=== PATIENT | male | born 1955 | race Hispanic/Latino ===

== ENCOUNTER 2019-08-27 20:24 | Emergency (ER) | payer OTHER ==
[~2019-08-27] VITALS: Ht 177.8 cm; Wt 113.4 kg
--- OUTSIDE RECORDS SUMMARY | 2019-08-27 20:26 | XMS REPORT ---
Author Author [facility] Address Unknown Phone Unavailable Care Team Providers Care Bingo Usher Name Role Phone Unavailable Unavailable Problems This patient has no known problems. Allergies, Adverse Reactions, Alerts This patient has no known allergies or adverse reactions. Medications This patient has no known medications. Results Test Description Test Time Test Comments Text Results Atomic Results Result Comments MR, SPINE, LUMBAR, WITHOUT CONTRAST 2019-02-14 15:59:00 FINAL REPORT MR, SPINE, LUMBAR, WITHOUT CONTRAST INDICATION: gait instability,recurrent falls,spinals stenosis of lumbar region without neurogenic claudication,weakness of left foot COMPARISON: None TECHNIQUE: Multiplanar, multisequence MR images of the lumbar spine without contrast. FINDINGS: 5 nonrib-bearing lumbar-type vertebral bodies are present. Carotid one anterolisth esis of L4 and L5. Vertebral body height is maintained. Multilevel disc space height loss is present, most conspicuous at L4-L5 and L5-[id number] terminates at .Cauda equina demonstrates normal appearance.No acute findings in the paraspinal soft tissues. Evaluation of the individual levels demonstrates: L1/L2: Unremarkable L2/L3: Mild disc bulge. Moderate left subarticular recess stenosis with proximity of disc material to the left L3 nerve root L3/L4: Disc bulge is severe bilateral facet arthropathy and hypertrophy. A T1 hypointense, T2 hyperintense well-circumscribed cystic structure lies posterior to the right L3- L4 facet joint (axial T2 image 22), likely representing an extruded synovial cyst. Disc disease, facet hypertrophy and ligamentum flavum thickening contribute to moderate/severe canal narrowing. No significant foraminal narrowing. L4/L5: Grade 1 anterolisthesis of L4 and L5. Disc bulge with tiny superimposed central disc extrusion and caudal migration of disc material. Bilateral facet arthropathy and hypertrophy. Ligamentum flavum thickening. Severe stenosis of the thecal sac. No significant foraminal narrowing. Severe bilateral subarticular recess stenosis with proximity of disc material to the L5 nerve roots. L5/S1: Symmetric disc bulge and bilateral facet arthropathy and hypertrophy. No significant canal or foraminal narrowing. Moderate bilateral subarticular recess stenosis with proximity of disc material to the S1 nerve roots. IMPRESSION: Multilevel disc degeneration as per above Signed: Machelle Bland Verified Date/Time: 02/14/2019 15:59:38 Reading Location: [facility] Radiology Reading Room
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
[2019-08-27] MEDS ORDERED: CYCLOBENZAPRINE5 MG PO (21:52)
[2019-08-27 22:15] VITALS: BP 172/107
--- NOTE | 2019-08-27 22:17 | NUR ---
DR PHILIP AWARE OF BLOOD PRESSURE, PT STATED HE IS UNDER STRESS AND WILL TAKE MEDICATION WHEN HE GETS HOME, DR PHILIP AWARE AND OK WITH PT ADDRESSING HIS BP AT HOME
== END 2019-08-27 22:19 | disposition home or self-care (01) ==
LOC: FSED 20:24
DX: S06.0X0A Concussion without loss of consciousness, initial encounter (principal); M54.2 Cervicalgia; R07.2 Precordial pain; S20.219A Contusion of unspecified front wall of thorax, initial encounter; V43.52XA Car driver injured in collision with other type car in traffic accident, initial encounter; Y92.488 Other paved roadways as the place of occurrence of the external cause
CPT/HCPCS: 70450; 71045; 72125; 99283